=== PATIENT | female | born 1945 ===

== ENCOUNTER 2018-01-04 15:36 | Observation (INO) | payer MEDICAID, OTHER ==
[2018-01-04 15:37] VITALS: BMI 23.8
[2018-01-04 16:27] LABS: BASO % 0.3 % (0.0-2.0); EOS # 0.1 K/uL (0.0-0.7); EOS % 1.4 % (0.0-4.0); HEMOGLOBIN 12.4 g/dL (11.0-16.0); LYMPH # 1.5 K/uL (1.0-4.3); LYMPH % 27.5 % (20.0-40.0); MEAN CORPUSCULAR HEMOGLOBIN 27.1 pg (27.0-31.0); MEAN CORPUSCULAR HGB CONC 33.5 g/dL (33.0-37.0); MEAN PLATELET VOLUME 7.5 fL (7.2-11.7); MONO # 0.3 K/uL (0.0-0.8); MONO % 5.7 % (0.0-10.0); NEUT # 3.6 K/uL (1.8-7.0); NEUT % 65.1 % (50.0-75.0); NRBC % 0.1 % (0.0-2.0); RBC 4.57 Mil/uL (3.80-5.20); RED CELL DISTRIBUTION WIDTH 13.8 % (11.5-14.5); WHITE BLOOD COUNT 5.6 K/uL (4.8-10.8)
[2018-01-04 16:39] LABS: ALB/GLOB RATIO 1.2 (1.0-2.1); ALBUMIN 4.2 g/dL (3.5-5.0); ALT/SGPT 34 U/L (9-52); AST/SGOT 20 U/L (14-36); BLOOD UREA NITROGEN 6 mg/dL (7-17); CALCIUM 9.1 mg/dl (8.6-10.4); GFR AFRICAN-AMERICAN > 60; GFR NON-AFRICAN AMERICAN > 60
[2018-01-04 16:52] LABS: B-TYPE NATRIURETIC PEPTIDE 366 pg/mL (0-900)
--- NOTE | 2018-01-04 17:07 | C.PDOC ---
History Of Present Illness 72-year-old female, presents to the emergency department, sent from [facility] secondary to chest pain. Patient states she has been experiencing intermittent left-sided chest pain x4 days that is associated with some shortness of breath. She denies nausea/vomiting, diarrhea, fevers or chills. Time Seen by Provider: 01/04/18 16:01 Chief Complaint (Nursing): Abnormal Labs History Per: Patient History/Exam Limitations: no limitations Past Medical History Reviewed: Historical Data, Nursing Documentation, Vital Signs Vital Signs: Last Vital Signs Temp 98.5 F 01/04/18 15:45 Pulse 61 01/04/18 16:26 Resp 18 01/04/18 16:26 BP 178/81 H 01/04/18 16:26 Pulse Ox 98 01/04/18 17:07 - Medical History PMH: CHF, Gall Bladder Disease, HTN, Hypercholesterolemia Surgical History: Cholecystectomy, Coronary Stent Family History: States: No Known Family Hx - Social History Hx Alcohol Use: No Hx Substance Use: No - Immunization History Hx Tetanus Toxoid Vaccination: No Hx Influenza Vaccination: No Hx Pneumococcal Vaccination: No Review Of Systems Except As Marked, All Systems Reviewed And Found Negative. Constitutional: Negative for: Fever Cardiovascular: Positive for: Chest Pain. Negative for: Palpitations, Edema, Light Headedness Respiratory: Positive for: Shortness of Breath Gastrointestinal: Negative for: Vomiting Musculoskeletal: Negative for: Back Pain Neurological: Negative for: Weakness, Numbness, Headache, Dizziness Physical Exam - Physical Exam Appears: Non-toxic, No Acute Distress Skin: Normal Color, Warm, Dry, No Rash Head: Normacephalic Eye(s): bilateral: PERRL Nose: Normal Oral Mucosa: Moist Lips: Normal Appearing Neck: Normal ROM Chest: Symmetrical Cardiovascular: Rhythm Regular, No Murmur Respiratory: Normal Breath Sounds, No Accessory Muscle Use Gastrointestinal/Abdominal: Soft, No Tenderness Extremity: Normal ROM, No Pedal Edema, No Deformity, No Swelling Neurological/Psych: Oriented x3, Normal Speech ED Course And Treatment - Laboratory Results Result Diagrams: 01/04/18 16:24 01/04/18 16:24 ECG: Interpreted By Me, Viewed By Me ECG Rhythm: Sinus Rhythm ECG Interpretation: No Acute Changes Interpretation Of ECG: T wave inversion 4-6 Rate From EC O2 Sat by Pulse Oximetry: 98 (RA) Pulse Ox Interpretation: Normal Medical Decision Making Medical Decision Making: Case discussed with Dr Vicente, states she will admit patient to tele obs for chest pain s/o [place] Disposition Discussed With .: Benedicto Vicente Doctor Will See Patient In The: Hospital Counseled Patient/Family Regarding: Diagnosis - Disposition Disposition: HOSPITALIZED Disposition Time: 17:06 Condition: FAIR - Clinical Impression Clinical Impression: Chest pain - Scribe Statement The provider has reviewed the documentation as recorded by the Scribe (Ehsan Noel) All medical record entries made by the Scribe were at my direction and personally dictated by me. I have reviewed the chart and agree that the record accurately reflects my personal performance of the history, physical exam, medical decision making, and the department course for this patient. I have also personally directed, reviewed, and agree with the discharge instructions and disposition.
--- NOTE | 2018-01-04 17:49 | RAD ---
PROCEDURE: CHEST RADIOGRAPH, 1 VIEW HISTORY: chest pain COMPARISON: None. FINDINGS: LUNGS: Clear. PLEURA: No pneumothorax or pleural fluid seen. CARDIOVASCULAR: No radiographic findings to suggest acute or significant cardiovascular disease. OSSEOUS STRUCTURES: No significant abnormalities. VISUALIZED UPPER ABDOMEN: Normal. OTHER FINDINGS: None. IMPRESSION: No active disease.
[2018-01-04] MEDS ORDERED: Labetalol 25mg/5ml Syringe IVP STA (18:13)
[2018-01-04] MEDS ORDERED: Enoxaparin 40 mg Syringe SC SCH (19:27)
--- NOTE | 2018-01-04 19:45 | CP.PCM.HP ---
<Torri COSTASarah - Last Filed: 01/04/18 19:37> History of Present Illness - History of Present Illness History of Present Illness: CC: chest pain Patient is a 72 year old female with PMHx HTN, PA and cardiac cath with LAD and circumflex stent in [facility] one year, who presents to ED with complaint of chest pain. Patient states pain started on while cleaning. The pain is intermittent and stabbing in nature. She denies chest pain at rest. She states pain improved on Thursday but came back again prompting ED evaluation. Patient denies dizziness or light-headedness, she admits to palpitations yesterday. She denies nausea or vomiting or diaphoresis. Patient states she takes all medications every day but does not check her blood pressure in ambulatory setting. 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 Patient notes she does eat a lot of salty foods and did not know this could affect her blood pressure. PMD: [facility] Outpt cardio: [place] Meds: lipitor 40, plavix 75mg, ramipril 5mg, coreg 6.25 BID PMHx: PA with cardiac cath in [place] 2017, HTN, elevated cholesterol , A1c 6.8 one year ago but patient denies history of diabetes PSHx: cholecystecomy, cardiac cath, sugery "to have no more babies" (likely tubal ligation) FamHx: mother with HTN SocialHx: denies ever smoking tobacco, drugs, alcohol allergies: none Present on Admission - Present on Admission Any Indicators Present on Admission: No Review of Systems - Constitutional Constitutional: absent: Chills, Fever - EENT Eyes: absent: Blurred Vision Ears: absent: Dizziness - Cardiovascular Cardiovascular: Chest Pain, Palpitations. absent: Chest Pain at Rest, Dyspnea, Edema, Leg Edema, Lightheadedness - Respiratory Respiratory: absent: Cough - Gastrointestinal Gastrointestinal: absent: Abdominal Pain, Nausea, Vomiting - Genitourinary Genitourinary: absent: Dysuria - Musculoskeletal Musculoskeletal: absent: Arthralgias, Back Pain - Integumentary Integumentary: absent: Rash, Swelling - Neurological Neurological: absent: Dizziness, Focal Weakness, Weakness Past Patient History - Past Social History Smoking Status: Never Smoked - CARDIAC Hx Congestive Heart Failure: Yes Hx Hypercholesterolemia: Yes Hx Hypertension: Yes - PULMONARY Hx Asthma: No - RENAL Hx Chronic Kidney Disease: No - GASTROINTESTINAL Hx Gall Bladder Disease: Yes - PSYCHIATRIC Hx Substance Use: No - SURGICAL HISTORY Hx Cholecystectomy: Yes Hx Coronary Stent: Yes Meds Allergies/Adverse Reactions: Allergies Allergy/AdvReac Type Severity Reaction Status Date / Time No Known Allergies Allergy Verified 02/02/17 15:10 Physical Exam - Constitutional Appears: Non-toxic, No Acute Distress - Head Exam Head Exam: ATRAUMATIC, NORMOCEPHALIC - Eye Exam Eye Exam: EOMI - ENT Exam ENT Exam: Mucous Membranes Moist - Neck Exam Neck exam: Negative for: Lymphadenopathy - Respiratory Exam Respiratory Exam: Clear to Auscultation Bilateral, NORMAL BREATHING PATTERN - Cardiovascular Exam Cardiovascular Exam: +S1, +S2. absent: Tachycardia, JVD - GI/Abdominal Exam GI & Abdominal Exam: Normal Bowel Sounds, Soft. absent: Tenderness - Extremities Exam Extremities exam: Positive for: normal inspection. Negative for: calf tenderness, pedal edema Results - Vital Signs Recent Vital Signs: Last Vital Signs Temp 98.5 F 01/04/18 15:45 Pulse 64 01/04/18 18:46 Resp 15 01/04/18 18:46 BP 160/86 H 01/04/18 18:46 Pulse Ox 95 01/04/18 18:46 - Labs Result Diagrams: 01/04/18 16:24 01/04/18 16:24 Labs: Laboratory Results - last 24 hr 01/04/18 01/04/18 01/04/18 16:24 16:24 17:49 WBC 5.6 RBC 4.57 Hgb 12.4 Hct 37.0 MCV 81.0 MCH 27.1 MCHC 33.5 RDW 13.8 Plt Count 149 MPV 7.5 Neut % (Auto) 65.1 Lymph % (Auto) 27.5 Whitley % (Auto) 5.7 Eos % (Auto) 1.4 Baso % (Auto) 0.3 Neut # (Auto) 3.6 Lymph # (Auto) 1.5 Whitley # (Auto) 0.3 Eos # (Auto) 0.1 Baso # (Auto) 0.0 D-Dimer, Quantitative < 200 Sodium 143 Potassium 4.1 Chloride 102 Carbon Dioxide 25 Anion Gap 20 BUN 6 L Creatinine 0.8 Est GFR ( Amer) > 60 Est GFR (Non-Af Amer) > 60 Random Glucose 117 H Calcium 9.1 Total Bilirubin 0.7 AST 20 ALT 34 Alkaline Phosphatase 40 Troponin I < 0.0120 NT-Pro-B Natriuret Pep 366 Total Protein 7.5 Albumin 4.2 Globulin 3.4 Albumin/Globulin Ratio 1.2 Assessment & Plan - Assessment and Plan (Free Text) Assessment: Hypertensive Urgency monitor on telemetry patient received 20mg labetalol and lisinopril 10 in ED with reduction of blood pressure from 202/95 to 160/86 cardiology, Dr. Rollins, consulted- help appreciated will start coreg 25mg PO BID and lisinopril 20mg per Dr. Rollins last echo 02/2017: EF 40-50%, mild-mod impaired systolic function; will repeat echo TAI score 4, will recalculate ASCVD risk pending lipid panel Chest pain likely due to uncontrolled hypertension first troponin negative, will trend x2 more with EKGs EKGs unchanged from prior study D-dimer negative BNP 366 CAD history of PA and cardiac cath in [place] approximately one year ago continue asa 81mg, plavix 75mg Hyperlipidemia will check lipid panel in AM continue crestor 20mg (equivalent to home med lipitor 40mg) crestor to start 01/05 as patient took lipitor this morning Diabetes last A1c 02/2017 was 6.8 patient denies history diabetes will repeat A1c accuchecks ACHS, will hold off on insulin currently pending A1c customer specialist referral Prophylactic measure lovenox 40mg SC daily protonix 40mg PO daily <Sandra Giles V - Last Filed: 01/04/18 20:52> Results - Vital Signs Recent Vital Signs: Last Vital Signs Temp 98.5 F 01/04/18 19:51 Pulse 68 01/04/18 19:51 Resp 20 01/04/18 19:51 BP 181/95 H 01/04/18 19:51 Pulse Ox 98 01/04/18 19:51 - Labs Result Diagrams: 01/04/18 16:24 01/04/18 16:24 Labs: Laboratory Results - last 24 hr 01/04/18 01/04/18 01/04/18 16:24 16:24 17:49 WBC 5.6 RBC 4.57 Hgb 12.4 Hct 37.0 MCV 81.0 MCH 27.1 MCHC 33.5 RDW 13.8 Plt Count 149 MPV 7.5 Neut % (Auto) 65.1 Lymph % (Auto) 27.5 Whitley % (Auto) 5.7 Eos % (Auto) 1.4 Baso % (Auto) 0.3 Neut # (Auto) 3.6 Lymph # (Auto) 1.5 Whitley # (Auto) 0.3 Eos # (Auto) 0.1 Baso # (Auto) 0.0 D-Dimer, Quantitative < 200 Sodium 143 Potassium 4.1 Chloride 102 Carbon Dioxide 25 Anion Gap 20 BUN 6 L Creatinine 0.8 Est GFR ( Amer) > 60 Est GFR (Non-Af Amer) > 60 Random Glucose 117 H Calcium 9.1 Total Bilirubin 0.7 AST 20 ALT 34 Alkaline Phosphatase 40 Troponin I < 0.0120 NT-Pro-B Natriuret Pep 366 Total Protein 7.5 Albumin 4.2 Globulin 3.4 Albumin/Globulin Ratio 1.2 Attending/Attestation - Attestation I have personally seen and examined this patient.: Yes I have fully participated in the care of the patient.: Yes I have reviewed all pertinent clinical information: Yes Notes (Text): Patient seen, examined and case discussed with medical technologist chemistry. Patient seen in [facility] Bed 9 in the Emergency Room with son at bedside. Patient does not have a primary care doctor. She has gone to many doctors in the past and received blood pressure medications from them. She does not check her blood pressure at home and unclear if she adheres to low salt diet. Patient noted to have chest pain starting on , lasting for 2 hours while cleaning, stabbing in nature, and smaller episodes on Thursday, and son brought her in today. Patient has a history of hypertension, CAD, [place] cardiac [place] Patient denies diabetes history with us; however her prior a1c from 1 year ago indicates she is a diabetic. Assessment/Plan 1) Hypertensive Urgency * monitor on telemetry * Patient received 20mg labetalol and lisinopril 10 in ED with reduction of blood pressure from 202/95 to 160/86 * Cardiology, Dr. Rollins, consulted- help appreciated * Recommends to start coreg 25mg PO BID (hold SBP<100 and HR<60) * increase lisinopril 20mg po daily per Dr. Rollins-->in the EMR i have listed it as Lisinopril 10mg PO BID since we are increasing her beta-manisha and her brad-inhibitor * Last echo 02/2017: EF 40-50%, mild-mod impaired systolic function; will repeat echo * proBNP within normal. D-dimer is low * 2 gram heart healthy diet * Will calculate ASCVD risk pending lipid panel in the AM 2. Chest pain History of Coronary Artery Disease * first troponin negative, will trend x2 more with EKGs * TAI: 4 * EKGs unchanged from prior study * D-dimer negative * BNP 366 * continue asa 81mg po daily, plavix 75mg PO daily * continue crestor 20mg po HS (equivalent to home med lipitor 40mg) to start tomorrow; patient took her lipitor prior to coming to the hospital 3. Hyperlipidemia * will check lipid panel in AM * continue crestor 20mg PO qHS (equivalent to home med lipitor 40mg) * crestor to start 01/05 as patient took lipitor this morning 4. Diabetes * last A1c 02/2017 was 6.8 * patient denies history diabetes * will repeat A1c in AM * accuchecklucien FLYNN, will hold off on insulin currently pending A1c * customer specialist referral * consumer educator 5. Prophylactic measure * lovenox 40mg SC daily * protonix 40mg PO daily
--- NOTE | 2018-01-04 19:50 | CP.PCM.CON ---
History of Present Illness - History of Present Illness History of Present Illness: Notified of consult. Discussed case, chart reviewed. increase Coreg to 25 mg BID increase lisinopril to 20 mg daily. trend cardiac enzymes. Past Patient History - Past Social History Smoking Status: Never Smoked - CARDIAC Hx Congestive Heart Failure: Yes Hx Hypercholesterolemia: Yes Hx Hypertension: Yes - PULMONARY Hx Asthma: No - RENAL Hx Chronic Kidney Disease: No - GASTROINTESTINAL Hx Gall Bladder Disease: Yes - PSYCHIATRIC Hx Substance Use: No - SURGICAL HISTORY Hx Cholecystectomy: Yes Hx Coronary Stent: Yes Meds Allergies/Adverse Reactions: Allergies Allergy/AdvReac Type Severity Reaction Status Date / Time No Known Allergies Allergy Verified 02/02/17 15:10 - Medications Medications: Current Medications Aspirin (Aspirin Chewable) 81 mg PO DAILY [facility] Carvedilol (Coreg) 25 mg PO BID [facility] Clopidogrel Bisulfate (Plavix) 75 mg PO DAILY [facility] Enoxaparin Sodium (Lovenox) 40 mg SC DAILY [facility] Famotidine (Pepcid) 20 mg PO BID [facility] Lisinopril (Zestril) 20 mg PO DAILY [facility] Rosuvastatin Calcium (Crestor) 20 mg PO HS [facility] Results - Vital Signs Recent Vital Signs: Last Vital Signs Temp 98.5 F 01/04/18 15:45 Pulse 64 01/04/18 18:46 Resp 15 01/04/18 18:46 BP 160/86 H 01/04/18 18:46 Pulse Ox 95 01/04/18 18:46 - Labs Result Diagrams: 01/04/18 16:24 01/04/18 16:24 Labs: Laboratory Results - last 24 hr 01/04/18 01/04/18 01/04/18 16:24 16:24 17:49 WBC 5.6 RBC 4.57 Hgb 12.4 Hct 37.0 MCV 81.0 MCH 27.1 MCHC 33.5 RDW 13.8 Plt Count 149 MPV 7.5 Neut % (Auto) 65.1 Lymph % (Auto) 27.5 [place] % (Auto) 5.7 Eos % (Auto) 1.4 Baso % (Auto) 0.3 Neut # (Auto) 3.6 Lymph # (Auto) 1.5 [place] # (Auto) 0.3 Eos # (Auto) 0.1 Baso # (Auto) 0.0 D-Dimer, Quantitative < 200 Sodium 143 Potassium 4.1 Chloride 102 Carbon Dioxide 25 Anion Gap 20 BUN 6 L Creatinine 0.8 Est GFR ( Amer) > 60 Est GFR (Non-Af Amer) > 60 Random Glucose 117 H Calcium 9.1 Total Bilirubin 0.7 AST 20 ALT 34 Alkaline Phosphatase 40 Troponin I < 0.0120 NT-Pro-B Natriuret Pep 366 Total Protein 7.5 Albumin 4.2 Globulin 3.4 Albumin/Globulin Ratio 1.2
[2018-01-04 23:16] LABS: CK-MB < 0.22 ng/mL (0.0-3.38)
[2018-01-05 03:54] LABS: CK-MB < 0.22 ng/mL (0.0-3.38)
[2018-01-05 07:55] VITALS: O2SAT 97
[2018-01-05 08:21] LABS: BASO % 0.5 % (0.0-2.0); EOS # 0.1 K/uL (0.0-0.7); EOS % 1.3 % (0.0-4.0); HEMOGLOBIN 11.8 g/dL (11.0-16.0); LYMPH # 1.1 K/uL (1.0-4.3); LYMPH % 25.7 % (20.0-40.0); MEAN CELL VOLUME 79.9 fL (81.0-99.0); MEAN CORPUSCULAR HEMOGLOBIN 27.8 pg (27.0-31.0); MEAN CORPUSCULAR HGB CONC 34.7 g/dL (33.0-37.0); MEAN PLATELET VOLUME 7.5 fL (7.2-11.7); MONO # 0.3 K/uL (0.0-0.8); NEUT # 2.9 K/uL (1.8-7.0); NEUT % 66.5 % (50.0-75.0); RBC 4.23 Mil/uL (3.80-5.20); RED CELL DISTRIBUTION WIDTH 13.7 % (11.5-14.5); WHITE BLOOD COUNT 4.3 K/uL (4.8-10.8)
[2018-01-05 08:44] LABS: ALB/GLOB RATIO 1.4 (1.0-2.1); ALBUMIN 3.8 g/dL (3.5-5.0); ALT/SGPT 26 U/L (9-52); AST/SGOT 19 U/L (14-36); BLOOD UREA NITROGEN 11 mg/dL (7-17); CALCIUM 8.9 mg/dl (8.6-10.4); GFR AFRICAN-AMERICAN > 60; GFR NON-AFRICAN AMERICAN > 60; HDL CHOLESTEROL 21 mg/dL (30-70)
[2018-01-05 08:55] LABS: LDL CHOLESTEROL 42 mg/dL (0-129)
--- NOTE | 2018-01-05 12:22 | CP.PCM.PN ---
Subjective - Date & Time of Evaluation Date of Evaluation: 01/05/18 Time of Evaluation: 11:00 - Subjective Subjective: patient has no chest pain. recommend continued blood pressure control. follow up with Cardiology clinic. Objective - Vital Signs/Intake and Output Vital Signs (last 24 hours): Temp Pulse Resp BP Pulse Ox 97.3 F L 69 18 176/84 H 97 01/05/18 07:45 01/05/18 08:00 01/05/18 07:45 01/05/18 10:53 01/05/18 07:45 - Medications Medications: Current Medications Aspirin (Aspirin Chewable) 81 mg PO DAILY [facility] Last Admin: 01/05/18 10:53 Dose: 81 mg Carvedilol (Coreg) 25 mg PO BID [facility] Last Admin: 01/05/18 10:53 Dose: 25 mg Clopidogrel Bisulfate (Plavix) 75 mg PO DAILY [facility] Last Admin: 01/05/18 10:53 Dose: 75 mg Famotidine (Pepcid) 20 mg PO BID [facility] Last Admin: 01/05/18 10:53 Dose: 20 mg Lisinopril (Zestril) 20 mg PO DAILY [facility] Rosuvastatin Calcium (Crestor) 20 mg PO HS [facility] - Labs Labs: 01/05/18 08:11 01/05/18 08:11
[2018-01-05 16:01] VITALS: PULSE 65
[2018-01-05 16:14] VITALS: BP 157/77; RESP 20; TEMP 98.1
--- NOTE | 2018-01-05 17:17 | CP.PCM.DIS ---
<Josue Gracia - Last Filed: 01/06/18 06:23> Provider - Provider Date of Admission: 01/04/18 17:05 Attending physician: Sandra Giles DO Consults: Cardio - Ayo Time Spent in preparation of Discharge (in minutes): 30 Hospital Course - Lab Results Lab Results: Most Recent Lab Values WBC 4.3 K/uL (4.8-10.8) L 01/05/18 08:11 RBC 4.23 Mil/uL (3.80-5.20) 01/05/18 08:11 Hgb 11.8 g/dL (11.0-16.0) 01/05/18 08:11 Hct 33.8 % (34.0-47.0) L 01/05/18 08:11 MCV 79.9 fL (81.0-99.0) L 01/05/18 08:11 MCH 27.8 pg (27.0-31.0) 01/05/18 08:11 MCHC 34.7 g/dL (33.0-37.0) 01/05/18 08:11 RDW 13.7 % (11.5-14.5) 01/05/18 08:11 Plt Count 119 K/uL (130-400) L D 01/05/18 08:11 MPV 7.5 fL (7.2-11.7) 01/05/18 08:11 Neut % (Auto) 66.5 % (50.0-75.0) 01/05/18 08:11 Lymph % (Auto) 25.7 % (20.0-40.0) 01/05/18 08:11 Sac % (Auto) 6.0 % (0.0-10.0) 01/05/18 08:11 Eos % (Auto) 1.3 % (0.0-4.0) 01/05/18 08:11 Baso % (Auto) 0.5 % (0.0-2.0) 01/05/18 08:11 Neut # (Auto) 2.9 K/uL (1.8-7.0) 01/05/18 08:11 Lymph # (Auto) 1.1 K/uL (1.0-4.3) 01/05/18 08:11 Sac # (Auto) 0.3 K/uL (0.0-0.8) 01/05/18 08:11 Eos # (Auto) 0.1 K/uL (0.0-0.7) 01/05/18 08:11 Baso # (Auto) 0.0 K/uL (0.0-0.2) 01/05/18 08:11 D-Dimer, Quantitative < 200 ng/mlDDU (0-243) 01/04/18 17:49 Sodium 141 mmol/L (132-148) 01/05/18 08:11 Potassium 4.4 mmol/L (3.6-5.2) 01/05/18 08:11 Chloride 103 mmol/L (98-107) 01/05/18 08:11 Carbon Dioxide 26 mmol/L (22-30) 01/05/18 08:11 Anion Gap 16 (10-20) 01/05/18 08:11 BUN 11 mg/dL (7-17) 01/05/18 08:11 Creatinine 0.9 mg/dL (0.7-1.2) 01/05/18 08:11 Est GFR ( Amer) > 60 01/05/18 08:11 Est GFR (Non-Af Amer) > 60 01/05/18 08:11 POC Glucose (mg/dL) 136 mg/dL (65-110) H 01/05/18 11:12 Random Glucose 129 mg/dL (65-105) H 01/05/18 08:11 Hemoglobin A1c 6.4 % (4.2-6.5) 01/05/18 08:11 Calcium 8.9 mg/dl (8.6-10.4) 01/05/18 08:11 Total Bilirubin 0.6 mg/dL (0.2-1.3) 01/05/18 08:11 AST 19 U/L (14-36) 01/05/18 08:11 ALT 26 U/L (9-52) 01/05/18 08:11 Alkaline Phosphatase 36 U/L (38-126) L 01/05/18 08:11 Total Creatine Kinase < 20 U/L (30-135) L 01/05/18 03:27 CK-MB (Mass) < 0.22 ng/mL (0.0-3.38) 01/05/18 03:27 Troponin I < 0.0120 ng/mL (0.00-0.120) 01/05/18 03:27 NT-Pro-B Natriuret Pep 366 pg/mL (0-900) 01/04/18 16:24 Total Protein 6.4 g/dL (6.3-8.3) 01/05/18 08:11 Albumin 3.8 g/dL (3.5-5.0) 01/05/18 08:11 Globulin 2.6 gm/dL (2.2-3.9) 01/05/18 08:11 Albumin/Globulin Ratio 1.4 (1.0-2.1) 01/05/18 08:11 Triglycerides 244 mg/dL (0-149) H 01/05/18 08:11 Cholesterol 100 mg/dL (0-199) 01/05/18 08:11 LDL Cholesterol Direct 42 mg/dL (0-129) 01/05/18 08:11 HDL Cholesterol 21 mg/dL (30-70) L 01/05/18 08:11 TSH 3rd Generation 1.24 mIU/L (0.46-4.68) 01/05/18 08:11 - Hospital Course Hospital Course: As per admission documentation Patient is a 72 year old female with PMHx HTN, AK and cardiac cath with LAD and circumflex stent in [facility] one year, who presents to ED with complaint of chest pain. Patient states pain started on while cleaning. The pain is intermittent and stabbing in nature. She denies chest pain at rest. She states pain improved on Thursday but came back again prompting ED evaluation. Patient denies dizziness or light-headedness, she admits to palpitations yesterday. She denies nausea or vomiting or diaphoresis. Patient states she takes all medications every day but does not check her blood pressure in ambulatory setting. Patient follows with [facility] and Dr. Cabral as outpatient telesales manager. Patient notes she does eat a lot of salty foods and did not know this could affect her blood pressure. Hospital Course Patient was admitted for Hypertensive Urgency, blood pressure 202/95, and Chest pain r/o with hx of CAD w/ stents. Cardiology, Dr. Rollins, was consulted. JERAMY negative x3 BNP 366 last echo 02/2017: EF 40-50%, mild-mod impaired systolic function - ECHO was repeated, awaiting official report. Patient's blood pressure medications were increased. Increased Coreg to 25 mg BID and increase lisinopril to 20 mg daily. Patient's chest pain resolved quickly upon getting blood pressure under control. It was believed that her chest pain was secondary due to uncontrolled hypertension. She was discharged the following day after admission. She was stable throughout her hospital course without any acute events. Discharge Instructions Patient is to be discharged home per Dr. Giles. Patient is to follow up with her PMD at the [facility] and her outpatient telesales manager, Dr. Cabral. Please call and schedule an appointment within one week of being discharged. Patient is being discharged home with new medications. These are the only medications the patient is supposed to be taking at this time. Please discontinue all other home medications. It was stressed to the patient that she can not mixed these medications with previous medications that she has used in the past as it could cause her to lower her blood pressure too much and experience severe adverse effects if she does. Please take them as directed below until the patient follows up with her PMD and Dr. Cabral for further recommendations and continued management. If you experience any new or worsening symptoms, please go directly to the nearest emergency location. Current Medication Regiment (Prescriptions given for all medications): Aspirin 81 mg PO daily Carvedilol (Coreg) 25 mg PO BID Clopidogrel (Plavix) 75 mg PO daily Lisinopril 20 mg PO daily Atorvastatin 40 mg PO HS Physical Exam - Constitutional Appears: Non-toxic, No Acute Distress - Head Exam Head Exam: ATRAUMATIC, NORMOCEPHALIC - Eye Exam Eye Exam: EOMI - ENT Exam ENT Exam: Mucous Membranes Moist - Neck Exam Neck exam: Negative for: Lymphadenopathy - Respiratory Exam Respiratory Exam: Clear to Auscultation Bilateral, NORMAL BREATHING PATTERN - Cardiovascular Exam Cardiovascular Exam: +S1, +S2. absent: Tachycardia, JVD - GI/Abdominal Exam GI & Abdominal Exam: Normal Bowel Sounds, Soft. absent: Tenderness - Extremities Exam Extremities exam: Positive for: normal inspection. Negative for: calf tenderness, pedal edema Discharge Plan - Discharge Medications Prescriptions: Aspirin [Aspirin Chewable] 81 mg PO DAILY #30 chew Atorvastatin [Lipitor] 40 mg PO DAILY #30 tab Carvedilol [Coreg] 25 mg PO BID #60 tab Clopidogrel [Plavix] 75 mg PO DAILY #30 tab Lisinopril [Zestril] 20 mg PO DAILY #30 tab - Follow Up Plan Condition: FAIR Disposition: HOME/ ROUTINE Instructions: Chest Pain, Aspirin, Atorvastatin, Carvedilol, Clopidogrel, Lisinopril Additional Instructions: Patient is to be discharged home per Dr. Giles. Patient is to follow up with her PMD at the [facility] and her outpatient telesales manager, Dr. Cabral. Please call and schedule an appointment within one week of being discharged. Patient is being discharged home with new medications. These are the only medications the patient is supposed to be taking at this time. Please discontinue all other home medications. It was stressed to the patient that she can not mixed these medications with previous medications that she has used in the past as it could cause her to lower her blood pressure too much and experience severe adverse effects if she does. Please take them as directed below until the patient follows up with her PMD and Dr. Cabral for further recommendations and continued management. If you experience any new or worsening symptoms, please go directly to the nearest emergency location. Current Medication Regiment (Prescriptions given for all medications): Aspirin 81 mg PO daily Carvedilol (Coreg) 25 mg PO BID Clopidogrel (Plavix) 75 mg PO daily Lisinopril 20 mg PO daily Atorvastatin 40 mg PO HS <Sandra Giles V - Last Filed: 02/04/18 23:10> Provider - Provider Date of Admission: 01/04/18 17:05 Attending physician: Sandra Giles DO Time Spent in preparation of Discharge (in minutes): 31 Hospital Course - Lab Results Lab Results: Most Recent Lab Values WBC 4.3 K/uL (4.8-10.8) L 01/05/18 08:11 RBC 4.23 Mil/uL (3.80-5.20) 01/05/18 08:11 Hgb 11.8 g/dL (11.0-16.0) 01/05/18 08:11 Hct 33.8 % (34.0-47.0) L 01/05/18 08:11 MCV 79.9 fL (81.0-99.0) L 01/05/18 08:11 MCH 27.8 pg (27.0-31.0) 01/05/18 08:11 MCHC 34.7 g/dL (33.0-37.0) 01/05/18 08:11 RDW 13.7 % (11.5-14.5) 01/05/18 08:11 Plt Count 119 K/uL (130-400) L D 01/05/18 08:11 MPV 7.5 fL (7.2-11.7) 01/05/18 08:11 Neut % (Auto) 66.5 % (50.0-75.0) 01/05/18 08:11 Lymph % (Auto) 25.7 % (20.0-40.0) 01/05/18 08:11 Sac % (Auto) 6.0 % (0.0-10.0) 01/05/18 08:11 Eos % (Auto) 1.3 % (0.0-4.0) 01/05/18 08:11 Baso % (Auto) 0.5 % (0.0-2.0) 01/05/18 08:11 Neut # (Auto) 2.9 K/uL (1.8-7.0) 01/05/18 08:11 Lymph # (Auto) 1.1 K/uL (1.0-4.3) 01/05/18 08:11 Sac # (Auto) 0.3 K/uL (0.0-0.8) 01/05/18 08:11 Eos # (Auto) 0.1 K/uL (0.0-0.7) 01/05/18 08:11 Baso # (Auto) 0.0 K/uL (0.0-0.2) 01/05/18 08:11 D-Dimer, Quantitative < 200 ng/mlDDU (0-243) 01/04/18 17:49 Hep-Yarely Thrombocytopen Negative (Negative) 01/05/18 11:08 Sodium 141 mmol/L (132-148) 01/05/18 08:11 Potassium 4.4 mmol/L (3.6-5.2) 01/05/18 08:11 Chloride 103 mmol/L (98-107) 01/05/18 08:11 Carbon Dioxide 26 mmol/L (22-30) 01/05/18 08:11 Anion Gap 16 (10-20) 01/05/18 08:11 BUN 11 mg/dL (7-17) 01/05/18 08:11 Creatinine 0.9 mg/dL (0.7-1.2) 01/05/18 08:11 Est GFR ( Amer) > 60 01/05/18 08:11 Est GFR (Non-Af Amer) > 60 01/05/18 08:11 POC Glucose (mg/dL) 136 mg/dL (65-110) H 01/05/18 11:12 Random Glucose 129 mg/dL (65-105) H 01/05/18 08:11 Hemoglobin A1c 6.4 % (4.2-6.5) 01/05/18 08:11 Calcium 8.9 mg/dl (8.6-10.4) 01/05/18 08:11 Total Bilirubin 0.6 mg/dL (0.2-1.3) 01/05/18 08:11 AST 19 U/L (14-36) 01/05/18 08:11 ALT 26 U/L (9-52) 01/05/18 08:11 Alkaline Phosphatase 36 U/L (38-126) L 01/05/18 08:11 Total Creatine Kinase < 20 U/L (30-135) L 01/05/18 03:27 CK-MB (Mass) < 0.22 ng/mL (0.0-3.38) 01/05/18 03: Troponin I < 0.0120 ng/mL (0.00-0.120) 01/05/18 03:27 NT-Pro-B Natriuret Pep 366 pg/mL (0-900) 01/04/18 16:24 Total Protein 6.4 g/dL (6.3-8.3) 01/05/18 08:11 Albumin 3.8 g/dL (3.5-5.0) 01/05/18 08:11 Globulin 2.6 gm/dL (2.2-3.9) 01/05/18 08:11 Albumin/Globulin Ratio 1.4 (1.0-2.1) 01/05/18 08:11 Triglycerides 244 mg/dL (0-149) H 01/05/18 08:11 Cholesterol 100 mg/dL (0-199) 01/05/18 08:11 LDL Cholesterol Direct 42 mg/dL (0-129) 01/05/18 08:11 HDL Cholesterol 21 mg/dL (30-70) L 01/05/18 08:11 UF Heparin Interp Negative (Negative) 01/05/18 11:08 TSH 3rd Generation 1.24 mIU/L (0.46-4.68) 01/05/18 08:11 Heparin-induced Plt Ab Negative (Negative) 01/05/18 11:08 DIVYA UFH Low Dose 0.1 0 % Release 01/05/18 11:08 DIVYA UFH Low Dose 0.5 0 % Release 01/05/18 11:08 DIVYA UFH High Dose 100 0 % Release 01/05/18 11:08 Attending/Attestation - Attestation I have personally seen and examined this patient.: Yes I have fully participated in the care of the patient.: Yes I have reviewed all pertinent clinical information, including history, physical exam and plan: Yes Notes (Text): This is late computer entry for 01/05/18. Patient seen and examined during rounds. Case discussed with cardiology, stable for discharge, f/u with cardiology upon discharge. Patient is medically stable for discharge. New medications given upon discharge. Discharge Diagnoses: 1) Hypertensive Urgency-->stable * Cardiology (Dr. Rollins) on board-->optimize blood pressure control, and f/u with outpatient cardiology * monitor on telemetry * JERAMY negative x3; BNP 366 * last echo 02/2017: EF 40-50%, mild-mod impaired systolic function - ECHO was repeated, awaiting official report * 2 gram heart healthy diet * Upon discharge, * Carvedilol (Coreg) 25 mg PO BID * Lisinopril 20 mg PO daily * Aspirin 81 mg PO daily 2. Chest pain (resolved) History of Coronary Artery Disease--Chronic * TAI: 4 * Hx of stent * D-dimer negative * BNP 366 * continue asa 81mg po daily, plavix 75mg PO daily * resume lipitor upon discharge * F/u outpatient cardiology upon discharge 3. Hyperlipidemia-->chronic * Lipid panel in the EMR * Resume lipitor on discharge 4. Diabetes-->Chronic * a1c: 6.4 -->controlled * patient denies history diabetes * accuchecks ACHS * combine driver referral * employee placement specialist 5. Thrombocytopenia * Mild decrease * Hold lovenox * Ordered for HIT and DIVYA * No bleeding, no petechiare observed 6. Prophylactic measure * lovenox 40mg SC daily * protonix 40mg PO daily This is a summary of patient's hospitalization. Please see EMR for further details.
--- NOTE | 2018-01-06 23:05 | CARD ---
APPROVED REPORT EKG Measurement Heart [id number] CA [id number] <Conclusion> Normal sinus rhythm ST & T wave abnormality, consider anterolateral ischemia short CA interval, Prolonged QT Abnormal ECG
--- NOTE | 2018-01-06 23:23 | CARD ---
APPROVED REPORT EKG Measurement Heart [id number] 120P33 [id number] <Conclusion> Normal sinus rhythm Low voltage QRS Cannot rule out Anterior infarct, age undetermined ST & T wave abnormality, consider lateral ischemia Abnormal ECG
--- NOTE | 2018-01-07 12:10 | CARD ---
APPROVED REPORT EXAM: Two-dimensional and M-mode echocardiogram with Doppler and color Doppler. Other Information Quality : AverageRhythm : NSR INDICATION Abnormal EKG/Arrhythmia Chest Pain Congestive Heart Failure Palpitations RISK FACTORS Hypertension Hyperlipidemia M-Mode DIMENSIONS RVDd1.48 (2.1-3.2cm)Left Atrium (MM)4.18 (2.5-4.0cm) IVSd0.82 (0.7-1.1cm)Aortic Root2.62 (2.2-3.7cm) LVDd5.93 (4.0-5.6cm)Aortic Cusp Exc.1.95 (1.5-2.0cm) PWd0.94 (0.7-1.1cm) Aortic Valve AoV Peak Ghqxuahq985.2cm/Soo Peak GR.9mmHg Mitral Valve MV E Qfgtcefv10.1cm/sMV A Brggyapl089.3cm/sE/A ratio0.5 TDI E/Lateral E'0.0E/Medial E'0.0 Tricuspid Valve TR Peak [id number]/sTR Peak [id number] <Conclusion> Left ventricle: thickness: normal; size:normal; overall ejection fraction: 65%: diastolic filling pressures: normal Mitral valve: annulus: normal: leaflets: normal: excursion: normal; no significant trans-mitral gradient: mild incompetence: left atrium: dilated Aortic valve: leaflets: normal: excursion: normal; no significant trans-aortic gradient: No significant incompetence: aortic root: normal Right sided Structures: Pulmonary valve: normal; no significant incompetence; Tricuspid valve: normal; no significant incompetence: Intra-cardiac hemodynamics: pulmonary systolic pressures: 35 mmHg; central venous pressures: normal No pericardial effusion
--- NOTE | 2018-01-08 16:52 | CARD ---
APPROVED REPORT EKG Measurement Heart [id number] 120P47 [id number] <Conclusion> Normal sinus rhythm ST & T wave abnormality, consider anterolateral ischemia Prolonged QT Abnormal ECG
--- NOTE | 2018-01-08 16:52 | CARD ---
APPROVED REPORT EKG Measurement Heart [id number] WI 110P53 [id number] <Conclusion> Sinus rhythm with short WI T wave abnormality, consider anterolateral ischemia Prolonged QT Abnormal ECG
== END 2018-01-05 17:32 | disposition home or self-care (01) ==
LOC: C.ER 15:36 → C.9E 17:05 → C.5S 17:53
PROVIDERS: ADMIT Hospitalist; ATTEND Hospitalist
DX: I16.0 Hypertensive urgency (principal); I25.10 Atherosclerotic heart disease of native coronary artery without angina pectoris; Z95.5 Presence of coronary angioplasty implant and graft; I25.2 Old myocardial infarction; I50.9 Heart failure, unspecified; I11.0 Hypertensive heart disease with heart failure; E78.00 Pure hypercholesterolemia, unspecified; Z82.49 Family history of ischemic heart disease and other diseases of the circulatory system; E11.9 Type 2 diabetes mellitus without complications; Z79.02 Long term (current) use of antithrombotics/antiplatelets; Z79.82 Long term (current) use of aspirin; D69.6 Thrombocytopenia, unspecified; E78.5 Hyperlipidemia, unspecified; Z79.899 Other long term (current) drug therapy; Z90.49 Acquired absence of other specified parts of digestive tract
CPT/HCPCS: 36415; 71045; 80053; 80061; 82948; 83036; 83880; 84443; 84484; 85025; 85378; 86022; 93005; 93306; 96374; 99284; G0378; J1650